=== PATIENT | female | born 1945 | race Two or more races ===

== ENCOUNTER 2023-07-31 14:58 | Inpatient (IN) | payer OTHER ==
[~2023-07-31] VITALS: Ht 175.3 cm; Wt 75.7 kg
[2023-07-31] MEDS ORDERED: FUROsemide 40 MG/4 ML VIAL IV ONE (15:30)
[2023-07-31] MEDS ORDERED: NITROGLYCERIN IN 5 % DEXTROSE 250 ML IV ONE (15:30)
[2023-07-31] MEDS ORDERED: IPRATROPIUM BROMIDE 0.5 MG/2.5 ML AMPUL.NEB IH SCH (15:30)
[2023-07-31] MEDS ORDERED: METHYLPREDNISOLONE SOD SUCC 125 MG VIAL IV ONE (15:30)
[2023-07-31 15:32] LABS: HEMATOCRIT 32.2 % (36.0-45.00); HEMOGLOBIN 10.6 g/dL (12.0-15.00); MEAN CELL VOLUME 79.4 fL (80.00-100.00); MEAN CORPUSCULAR HGB CONC 32.8 g/dl (32.0-36.0); PLATELET COUNT 364 K/uL (150-450); RED BLOOD COUNT 4.05 M/uL (4.00-6.00); RED CELL DISTRIBUTION WIDTH 13.5 % (11.5-14.5)
--- NOTE | 2023-07-31 15:39 | NUR ---
SE RECIBE PACIENTE FEMENINA ALERTA Y ORIENTADA X 3 ESFERAS EN AMBULANCIA LA CUAL INDICA QUE DESDE SHANTELLE PRESENTA DIFULTAD AL RESPIRAR Y LAS EXTREMIDADES INFERIORES CON EDEMA. SE UBICA A PACIENTE EN LA UNIDAD DE DOLOR DE PECHO, SE CONECTA A MONITOR CARDIACO, OXIMETRIA DE PULSO Y CANULA NASAL A 3LTS. EVALUA PTE. SE ORIENTA A PACIENTE SOBRE TX MEDICO, REFIERE ENTENDER. SE REALIZAN MUESTRAS DE LABORATORIO BAJO MEDIDAS ASEPTICAS. SE CANULA VENA EN BRAZO MAYET AREA RAJIV DE EDEMA Y ERITEMA. SE ADMINISTRAN MEDICAMENTOS HUMBERTO ORDEN MEDICA. SE NOTIFICAN ABG Y TERAPIA RESPIRATORIA A . SE COORDINAN WILFREDO. SE INSERTA SONDA URINARIA BAJO MEDIDAS ESTERILES Y SE COLECTA MUESTRA DE ORINA. SE DIANA A PACIENTE EN CAMA CON BARANDAS ELEVADAS POR SEGURIDAD Y SE MANTIENEN EN OBSERVACION POR CAMBIOS.
[2023-07-31 15:58] LABS: INR 1.36
[2023-07-31 16:06] LABS: PARTIAL THROMBOPLASTIN TIME 42.4 SECONDS (22.0-34.0)
[2023-07-31 16:12] LABS: ALBUMIN 3.1 gm/dL (3.4-5.0); BILIRUBIN TOTAL 0.34 mg/dL (0.3-1.2); CALCIUM 8.7 mg/dL (8.5-10.1); CREATININE SERUM 0.92 mg/dL (0.55-1.02); GFR 58.73; GLOBULINA 3.5 G/DL (2.4-3.5); TOTAL PROTEIN 6.6 gm/dL (6.4-8.2)
[2023-07-31 16:20] LABS: POTASSIUM 4.6 mEq/L (3.5-5.1)
[2023-07-31 16:22] LABS: ABG PH 7.443 (7.35-7.45); ABG PO2 50.7 mmHg (80-100); ABG pCO2 37.3 mmHg (35-45)
[2023-07-31 16:23] LABS: BASE EXCESS 1.1 mmol/l; BICARBONATE 24.9 mmol/l (23-25); SaO2 87.3 %; Tco2 26.1 mmol/l; allen test SATISFACTORY; o2 36 %; puncture site RADIAL RIGHT
[2023-07-31] MEDS ORDERED: CARDURA8 MG (16:36)
[2023-07-31] MEDS ORDERED: GLUMETZA500 MG (16:36)
[2023-07-31] MEDS ORDERED: FENOFIBRIC ACI135 MG (16:36)
[2023-07-31] MEDS ORDERED: AMIODARONE HCL400 MG (16:37)
[2023-07-31] MEDS ORDERED: LANOXIN125 MCG (16:37)
[2023-07-31] MEDS ORDERED: GLIPIZIDE XL10 MG (16:37)
[2023-07-31] MEDS ORDERED: VASOTEC20 M1 (16:37)
[2023-07-31] MEDS ORDERED: CLORAZEPATE DI7.5 MG (16:37)
[2023-07-31] MEDS ORDERED: CANDESARTAN CIL32 MG (16:38)
[2023-07-31] MEDS ORDERED: BISOPROLOL-HCT1 EAC2 (16:38)
[2023-07-31] MEDS ORDERED: XARELTO20 MG (16:38)
[2023-07-31] MEDS ORDERED: AMLODIPINE (16:39)
[2023-07-31 16:51] LABS: URINE APPEARANCE Clear; URINE BILIRRUBIN Negative (NEGATIVE); URINE BLOOD Negative; URINE COLOR Yellow; URINE GLUCOSE Negative (NEGATIVE); URINE LEUKOCYTE Negative; URINE NITRATE Negative; URINE PROTEIN Negative (NEGATIVE); URINE UROBILINOGEN 0.2 E.U./dl
[2023-07-31 16:55] LABS: URINE BACTERIA 8.8 uL (0.0-1933); URINE RBC 3.7 uL (0.0-20.8)
[2023-07-31] MEDS ORDERED: INSULIN LISPRO 1,000 UNIT/10 ML UNITS SUBCUTANEO PRN (19:45)
[2023-07-31] MEDS ORDERED: DEXTROSE 50 % IN WATER 0.5 G/ML DISP.SYRIN IV PRN (19:45)
[2023-07-31] MEDS ORDERED: ONDANSETRON HCL 4 MG in 0.9 % SODIUM CHLORIDE 50 ML IV PRN (20:00)
[2023-07-31] MEDS ORDERED: ACETAMINOPHEN 500 MG GEL..CAP PO PRN (20:00)
[2023-07-31] MEDS ORDERED: NITROGLYCERIN IN 5 % DEXTROSE 250 ML IV SCH (20:00)
[2023-07-31] MEDS ORDERED: FAMOTIDINE/PF 20 MG in 0.9 % SODIUM CHLORIDE 8 ML IV PUSH SCH (21:00)
[2023-07-31 22:07] LABS: CKMB 1.4 NG/ML (0.5-3.6); DIGOXIN 0.9 ng/ml (0.8-2.0)
[2023-08-01] MEDS ORDERED: IPRATROPIUM BROMIDE 0.5 MG/2.5 ML AMPUL.NEB IH SCH (01:00)
[2023-08-01] MEDS ORDERED: FUROsemide 40 MG/4 ML VIAL IV SCH (01:00)
[2023-08-01 06:51] LABS: CKMB 1.1 NG/ML (0.5-3.6)
[2023-08-01 07:25] LABS: HEMATOCRIT 30.6 % (36.0-45.00); HEMOGLOBIN 10.2 g/dL (12.0-15.00); MEAN CORPUSCULAR HEMOGLOBIN 26.2 pg (27.00-32.0); MEAN CORPUSCULAR HGB CONC 33.2 g/dl (32.0-36.0); PLATELET COUNT 382 K/uL (150-450); RED BLOOD COUNT 3.87 M/uL (4.00-6.00); RED CELL DISTRIBUTION WIDTH 13.5 % (11.5-14.5)
[2023-08-01 07:46] LABS: INR 1.14; PARTIAL THROMBOPLASTIN TIME 32.2 SECONDS (22.0-34.0); PROTHROMBIN TIME 11.9 SECONDS (9.0-11.5)
[2023-08-01 07:55] LABS: BILIRUBIN TOTAL 0.31 mg/dL (0.3-1.2); BILIRUBIN,CONJUGATED 0.11 mg/dL (0.0-0.2); BILIRUBIN,UNCONJUGATED 0.2 mg/dL (0.0-0.6); CALCIUM 8.7 mg/dL (8.5-10.1); CHOL HDL RATIO 2.9 (0-5.0); CREATININE SERUM 1.09 mg/dL (0.55-1.02); GFR 48.3; GLOBULINA 2.7 G/DL (2.4-3.5); POTASSIUM 4.04 mEq/L (3.5-5.1); TOTAL PROTEIN 5.7 gm/dL (6.4-8.2)
[2023-08-01 08:05] LABS: C-REACTIVE PROTEIN 1.14 MG/DL (0.00-0.29)
[2023-08-01 08:54] LABS: ERYTHROCYTE SEDIMENTATION RATE 16 mm/hr
[2023-08-01] MEDS ORDERED: ENALAPRIL MALEATE 20 MG TABLET PO SCH (09:00)
[2023-08-01] MEDS ORDERED: AMLODIPINE BESYLATE 5 MG TABLET PO SCH (09:00)
[2023-08-01] MEDS ORDERED: AMIODARONE HCL 200 MG TABLET PO SCH (09:00)
[2023-08-01] MEDS ORDERED: PATIENTS OWN MEDICATION (MEDICAMENTO EN PISO) PO SCH (09:00)
[2023-08-01] MEDS ORDERED: DIGOXIN 0.125 MG TABLET PO SCH (09:00)
[2023-08-01] MEDS ORDERED: ENOXAPARIN SODIUM 40 MG/0.4 ML SYRINGE SUBCUTANEO SCH (09:00)
[2023-08-01] MEDS ORDERED: DOCUSATE SODIUM 100MG CAP PO SCH (09:00)
[2023-08-01] MEDS ORDERED: ATORVASTATIN CALCIUM 40 MG TABLET PO SCH (09:00)
[2023-08-01 09:26] LABS: PH,URINE 5.5 (5.0-8.0); URINE APPEARANCE Clear; URINE BILIRRUBIN Negative (NEGATIVE); URINE BLOOD Small; URINE COLOR Yellow; URINE GLUCOSE Negative (NEGATIVE); URINE LEUKOCYTE Moderate; URINE NITRATE Negative; URINE PROTEIN Negative (NEGATIVE); URINE UROBILINOGEN 0.2 E.U./dl
[2023-08-01 09:29] LABS: URINE BACTERIA 212.8 uL (0.0-1933); URINE EPITHELIAL CELLS 8.5 uL (0.0-38.8); URINE RBC 9.6 uL (0.0-20.8); URINE WBC 32.7 uL (0.0-23.2)
[2023-08-01] MEDS ORDERED: METOPROLOL TARTRATE 25 MG TABLET PO SCH (13:18)
[2023-08-01 14:30] LABS: CKMB 1.4 NG/ML (0.5-3.6)
[2023-08-01] MEDS ORDERED: FAMOTIDINE/PF 20 MG/2 ML VIAL ONE (18:57)
[2023-08-02] MEDS ORDERED: FAMOTIDINE/PF 20 MG/2 ML VIAL ONE (08:12)
[2023-08-02] MEDS ORDERED: DOCUSATE SODIUM 100MG CAP PO SCH (09:00)
[2023-08-02] MEDS ORDERED: AMLODIPINE BESYLATE 5 MG TABLET PO SCH (09:00)
[2023-08-02] MEDS ORDERED: FUROsemide 40 MG/4 ML VIAL IV SCH (09:00)
[2023-08-03] MEDS ORDERED: ENOXAPARIN SODIUM 80 MG/0.8 ML SYRINGE SUBCUTANEO SCH (09:00)
[2023-08-03] MEDS ORDERED: AMLODIPINE BESYLATE 10 MG TABLET PO SCH (09:00)
[2023-08-03] MEDS ORDERED: FAMOtidine 20 MG TABLET PO SCH (09:00)
[2023-08-03] MEDS ORDERED: FUROsemide 40 MG/4 ML VIAL ONE (20:22)
[2023-08-05] MEDS ORDERED: APIXABAN 2.5 MG TABLET PO SCH (09:00)
[2023-08-05] MEDS ORDERED: METOPROLOL TARTRATE 50 MG TABLET PO SCH (09:00)
[2023-08-05] MEDS ORDERED: FUROsemide 40 MG TABLET PO SCH (09:00)
[2023-08-05 09:55] LABS: ABG PH 7.491 (7.35-7.45); ABG PO2 57.3 mmHg (80-100); ABG pCO2 39.8 mmHg (35-45); BICARBONATE 29.8 mmol/l (23-25); o2 21 %
[2023-08-05 09:56] LABS: allen test SATISFACTORY; puncture site RADIAL LEFT
[2023-08-05 09:57] LABS: SaO2 92.3 %
== END 2023-08-06 15:35 | disposition home or self-care (01) | DRG 291 ==
LOC: ER 14:58 → ICU-2 21:04 → ICU 21:04 → MEDJ 08-03 19:52
PROVIDERS: General Practice; Nurse Practitioner Family; ADMIT Internal Medicine; ATTEND Internal Medicine
PROC: B24BZZZ Ultrasonography of Heart with Aorta (ICD-10-PCS; principal; 2023-07-31)
PROC: 4A12X4Z Monitoring of Cardiac Electrical Activity, External Approach (ICD-10-PCS; 2023-08-03)
DX: I11.0 Hypertensive heart disease with heart failure (principal); I50.33 Acute on chronic diastolic (congestive) heart failure; I48.20 Chronic atrial fibrillation, unspecified; Z79.01 Long term (current) use of anticoagulants; I27.20 Pulmonary hypertension, unspecified; E11.8 Type 2 diabetes mellitus with unspecified complications; Z79.4 Long term (current) use of insulin